=== PATIENT | female | born 2000 | race African-American/Black ===

== ENCOUNTER 2024-10-12 12:30 | Inpatient (IN) | payer OTHER, SELFPAY ==
[2024-10-12] VITALS (14 sets, daily range): BP systolic 121–173; BP diastolic 72–121; BMI 53.2; BMI 51.3
--- NOTE | 2024-10-12 08:23 | ED.GENMED ---
History of Present Illness
General
Chief Complaint: Blood Pressure Problem
Source: patient
Exam Limitations: none
Time Seen by Provider: 10/12/24 08:12
Nursing documentation reviewed up to this point in time: agreed with
History of Present Illness
History of Present Illness:
24-year-old female from a local longterm she has been incarcerated for 8 or 9 months history of hypertension, presents with shortness of breath some cough lower extremity edema blood pressures been up meds have been titrated over the past few weeks to
months, states he has been compliant with it no chest pains, no fever or chills no abdominal pain not drink or smoke does feel like her legs are swollen
Past History
Past History
ED Past Medical History: Asthma and HTN
Social History
Tobacco: Non-smoker
Alcohol: None
Drug: None
Living: longterm
Employment: Not employed
Family History
Family History: Hypertension
Review of Systems
Review of Systems
All Other Systems: Not applicable
Constitutional: Reports sleep disturbance
Respiratory: Reports cough and trouble breathing
Musculoskeletal: Reports edema
Phy Exam
Physical Exam
Physical Exam:
Physical Exam
General: no apparent distress, not acutely ill
Neck: No jaw
Heart: s1/s2 regular rate and rhythm, no murmur. equal radial pulses.
Lungs: Faint crackles bilaterally
Abdomen: Obese nontender
Neuro: alert and oriented. no focal neurological deficits
Skin: no rash
Psychiatric: well kept. interactive and cooperative
Extremities: No pitting edema
Course
Orders/Labs/Results
Orders:
Orders
10/12/24 08:22
Electrocardiogram (*1) Stat
Reason for Study: Other
Other Reason for Exam: chest pain
Cardiac Monitoring- Treatment ONCE
EKG- Treatment ONCE
10/12/24 08:23
CR Chest - 2 Views Urgent
Comment:
Reason For Exam: sob
10/12/24 08:38
HydrALAZINE [Apresoline] 10 mg IV NOW STA
10/12/24 08:42
Complete Blood Count/With Diff Urgent
Comprehensive Metabolic Panel Urgent
Magnesium Urgent
NT-proBNP Urgent
TSH Urgent
Troponin I Urgent
10/12/24 09:49
Amlodipine [Norvasc] 10 mg PO NOW STA
Losartan [Cozaar] 50 mg PO NOW STA
10/12/24 09:50
Hydrochlorothiazide [Oretic] 25 mg PO NOW STA
10/12/24 10:11
Propranolol [Inderal] 20 mg PO NOW STA
10/12/24 10:19
HOSPITALIST CONSULT Routine
Consulting Provider: Jarred Smallwood
Was physician already notified: Yes
10/12/24 11:20
Labetalol HCl [Trandate] 20 mg IV NOW STA
Abnormal Lab Results
10/12/24
08:42
RBC 4.16 L 10^6/uL
(4.20-5.40)
Hgb 11.4 L g/dL
(12.0-16.0)
Hct 34.8 L %
(37.0-47.0)
MCHC 32.8 L g/dL
(33.0-37.0)
Absolute Monos (auto) 0.9 H 10^3/uL
(0.1-0.6)
Monocytes % 9.4 H %
(1.7-9.3)
Glucose 102 H mg/dl
(70-99)
10/12/24 08:42
10/12/24 08:42
Vital Signs
Initial and Last Documented VS:
Initial Vital Signs
Temp Pulse Resp BP Pulse Ox
98.6 F 89 16 172/116 99
10/12/24 08:11 10/12/24 08:11 10/12/24 08:11 10/12/24 08:11 10/12/24 08:11
Last Documented Vital Signs
Temp Pulse Resp BP Pulse Ox
98.6 F 84 12 166/115 99
10/12/24 08:11 10/12/24 11:00 10/12/24 11:00 10/12/24 11:00 10/12/24 11:03
MDM/Problems Addressed
Differential Diagnosis Includes:
Hypertensive urgency hypertensive emergency accelerated hypertension, cardiomyopathy
MDM/Problems Addressed:
Hypertension shortness of breath
Chronic conditions affecting care: HTN
Acute Exacerbation and/or Progression of Chronic Illness: HTN
*Radiology
Radiology exam reviewed: preliminary read by ED provider
*EKG
Interpreted by ED Provider?: Yes
Interpretation: abnormal
Comparison EKG: no comparison EKG present
Heart Rate: 70
Rate: normal
Rhythm: sinus
Ischemia: non-specific ST changes
*Soup Mixer Interpretation
Rate: normal
Interpretation: normal
Heart Rate: 70
Rhythm: sinus
*Critical Care Note
Total Time (30-74mins, 75-104mins- exclusive of procedures): Not Applicable
Update Note
Update Note:
9:50 AM labs noted chest x-ray noted chest x-ray report noted blood pressure improved a bit after hydralazine we will give her her p.o. meds, sideration for specialty consultation echocardiogram etc.
11:45 AM patient persistent hypertension, never had a workup for secondary causes, never had an echo, reviewed with hospitalist will admit
ED Attending Note
-
Portions of this chart may have been created with voice recognition software.� Occasional wrong word or��sound alike� substitutions may have occurred due to the inherent limitations of voice recognition software.
Discharge Plan
Departure
Patient Disposition: Admit
Date of Disposition: 10/12/24
Time of Disposition: 12:05
Admit to: Telemetry
Presentation/result/management discussed w/ accepting MD/DO: Hospitalist
Patient with high blood pressure during this ER visit?: Yes
Condition: Fair
Discharge Problem:
Accelerated hypertension
Referrals:
[facility] [Family Provider] -
Interventions
Interventions:
*Risk Screen - Suicide Last Done: 10/12/24 08:11
*General Assessment Last Done: 10/12/24 08:11
*Neglect/Abuse Screening Last Done: 10/12/24 08:11
*ED- Fall Risk Assessment Last Done: 10/12/24 11:06
*ED COVID-19 Vaccine History Last Done: 10/12/24 11:05
ED- Cardiac Assessment Last Done: 10/12/24 11:03
ED- Neurological Assessment Last Done: 10/12/24 11:03
ED- Pulmonary Assessment Last Done: 10/12/24 11:03
Discharge Date and Time
Print Language: LUXEMBOURGER
[2024-10-12] MEDS: APRESOLINE 10 MG IV ×2 (08:45→20:18)
[2024-10-12 08:59] LABS: % Basophils 0.3 % (0-2); % Eosinophils 0.6 % (0-6); % Immature Granulocytes 0.3 % (0-0.5); % Lymphocytes 24.7 % (20.5-51.1); % Monocytes 9.4 % (1.7-9.3); % Neutrophils 64.7 % (42.2-75.2); Absolute Eosinophils 0.1 10^3/uL (0-0.7); Absolute Lymphocytes 2.5 10^3/uL (1.2-3.4); Absolute Monocytes 0.9 10^3/uL (0.1-0.6); Absolute Neutrophils 6.4 10^3/uL (1.4-6.5); Hematocrit 34.8 % (37.0-47.0); Hemoglobin 11.4 g/dL (12.0-16.0); Mean Corp Hgb Conc. 32.8 g/dL (33.0-37.0); Mean Corpuscular Hgb 27.4 pg (27.0-31.0); Mean Corpuscular Volume 83.7 fL (81.0-99.0); Mean Platelet Volume 10.2 fL (7.4-10.4); Nucleated Red Blood Cells % 0 %; Platelet Count 393 10^3/uL (130-400); Red Blood Cell Count 4.16 10^6/uL (4.20-5.40); Red Cell Dist. Width 13.7 % (11.5-14.5); White Blood Cell Count 9.9 10^3/uL (4.8-10.8)
[2024-10-12 09:05] LABS: ALT (SGPT) 34 U/L (0-35); AST (SGOT) 29 U/L (14-36); Alkaline Phosphatase 79 U/L (38-126); Blood Urea Nitrogen 8 mg/dl (7-17); Calcium 9.4 mg/dl (8.4-10.2); Carbon Dioxide 28 mmol/L (22-30); Chloride 99 mmol/L (98-107); Glucose 102 mg/dl (70-99); Potassium 3.6 mmol/L (3.5-5.1); Sodium 136 mmol/L (135-145); Total Bilirubin 0.5 mg/dl (0.2-1.3); Total Protein 6.9 g/dl (6.3-8.2); eGFR > 60.00
[2024-10-12 09:15] LABS: NT-proBNP < 20.0 pg/ml; Troponin I < 0.012 ng/ml
[2024-10-12 09:37] LABS: TSH 3.75 uIU/ml (0.47-4.68)
[2024-10-12] MEDS: NORVASC 10 MG PO (10:19)
[2024-10-12] MEDS: COZAAR 50 MG PO ×2 (10:20→20:17)
[2024-10-12] MEDS: ORETIC 25 MG PO (10:20)
[2024-10-12] MEDS: INDERAL 20 MG PO (10:26)
[2024-10-12] MEDS: TRANDATE 20 MG IV (12:03)
--- NOTE | 2024-10-12 12:27 | HPS.HSE ---
Family Physician
-
Family Physician: Facility [facility]
Chief Complaint
-
Elevated blood pressure and shortness of breath
History of Present Illness
24-year-old female with a history of hypertension currently at [facility] came in because of uncontrolled blood pressure and shortness of breath.
3 days ago she was diagnosed with hypertension was put on 2 medication including a diuretic. Her blood pressure was elevated and she was referred to get a specialist evaluation but she landed in assisted. When she was not present she got both
propranolol and losartan introduced but the blood pressure still was elevated. In the last few days she is feeling short of breath with exertion and with elevated blood pressure she was sent in.
No chest pains or palpitation.
Apart from asthma no other medical history.
One of her sister who is in 30s also has of blood pressure issues. Both parents have blood pressure issue.
Denies any kidney disease or heart disease.
Patient received her regular medication and waiting for the blood pressure to be optimized. She also got IV hydralazine and labetalol on admission.
Medical History
Past Medical History
Past Medical History: Reports Asthma and HTN
Past Surgical History: Reports None
Social History
Tobacco: Non-smoker
Alcohol: None
Drug: None
Living: Halfway
Employment: Not Employed
Family History
Family History: Not pertinent
Allergies / Home Medications
Allergies reflects when Allergies were last updated in idiag.
Home Medications with original date entered in idiag
Allergy/Medication List:
Allergies
Allergy/AdvReac Type Severity Reaction Status Date / Time
No Known Allergies Allergy Unverified 10/12/24 08:10
Review of Systems
-
A 12 point ROS was completed and negative except as noted: Yes
Physical Exam
Vital Signs
Vital Signs
Temp Pulse Resp BP Pulse Ox
98.6 F 78 16 158/93 99
10/12/24 08:11 10/12/24 12:04 10/12/24 12:04 10/12/24 12:04 10/12/24 12:04
Physical Exam
General: Comfortable
HEENT: Moist mucous membranes
Respiratory: Clear
Cardiac: S1/S2 and Regular Rhythm; No Tachycardia
GI: Soft, Non Tender, Non Distended and Normal Bowel Sounds
Musculoskeletal: No No Edema (trace bl feet edema)
Neuro: AO x 3
Psych: Calm
Laboratory Results
-
10/12/24 08:42
10/12/24 08:42
Laboratory Results
Total Bilirubin 0.5 mg/dl (0.2-1.3) 10/12/24 08:42
AST 29 U/L (14-36) 10/12/24 08:42
ALT 34 U/L (0-35) 10/12/24 08:42
Alkaline Phosphatase 79 U/L (38-126) 10/12/24 08:42
Troponin I < 0.012 ng/ml 10/12/24 08:42
Data Reviewed
-
Diagnostic Radiology: Report Reviewed by me (cxr)
Lab Data: Labs Reviewed by me
Impression/Plan
-
Multidrug resistant hypertension with hypertensive urgency. No evidence of endorgan dysfunction. Patient would benefit inpatient further evaluation to optimize her medication as well as evaluate for secondary hypertension. Admit to telemetry.
Resume her home medication and adjust as needed. Consult nephrology. Check a UA. Cardiomegaly noted on a sitting chest x-ray we will get an echocardiogram for further evaluation. Clinically no signs of heart failure. Creatinine is normal. No
history of heart disease or cerebrovascular disease.
Asthma-no flare-continue as needed nebulizer.
Full code
--- NOTE | 2024-10-12 14:37 | W.CON.NEPH ---
Consultation
-
Date/Time Consultation Requested: 10/12/24 1230
Date/Time Consultation Performed: 10/12/24 1445
Requesting Provider: Jarred Tolliver
Performing Provider: Kimberly Pino
Reason for Consultation: HTN
Medical History
-
Chief Complaint: HTN, SOB
History of Present Illness:
24-year-old female with a history of hypertension currently at [facility] came in because of uncontrolled blood pressure and shortness of breath.Pt first diagnosed with HTN [address] [facility] and was started on
meds but never was controlled. She also told that she may have TERA and recommended to get testing done which she was unable to get since she ended up in intermediate since last 8-9months. Meds were further adjusted with addition of propranolol and
Losartan in intermediate. She does c/o palpitations. She has Asthma with intermittent wheezing for which takes nebs at intermediate as she can not use inhalers. In the last few days she is feeling short of breath with exertion and with elevated blood pressure
she was sent in today. On arrival her BP 170/120s. She notes having mild chest discomfort but none now. her sob is also better. She reports gaining wt and edema of feet for last 2weeks as well. She has dry mouth and drinks plenty of fluids. She also
notes of having mild blood when she blows her nose or coughs. She reports compliant with cardiac diet and dose not drink coffee. No drug use ever. No smoking. However strong family history of HTN, Mom post delivering the pt and had HTN
too.
Past Medical History
Asthma, HTN, obesity , suspected TERA
Social History
Tobacco: Non-Smoker
Alcohol: None
Drug: None
Living: Penitentiary
Employment: Not Employed
Family History
One of her sister who is in 30s also has of blood pressure issues. Both parents have blood pressure issue.
Denies any kidney disease or heart disease.
Mom post delivering the pt and had HTN too.
Allergies / Home Medications
Allergy/AdvReac Type Severity Reaction Status Date / Time
No Known Allergies Allergy Unverified 10/12/24 08:10
�Medication �Instructions �Recorded �Confirmed �Type
albuterol sulfate 2.5 mg/3 mL 2.5 mg inhalation TIDPRN PRN sob 10/12/24 10/12/24 History
(0.083 %) solution for nebulization
amlodipine 10 mg tablet 10 mg PO DAILY 10/12/24 10/12/24 History
hydrochlorothiazide 25 mg tablet 25 mg PO DAILY 10/12/24 10/12/24 History
hydroxyzine pamoate 25 mg capsule 25 mg PO HSPRN PRN anxiety 10/12/24 10/12/24 History
losartan 50 mg tablet 50 mg PO DAILY 10/12/24 10/12/24 History
mirtazapine 15 mg tablet 15 mg PO HS 10/12/24 10/12/24 History
propranolol 20 mg tablet 20 mg PO DAILY 10/12/24 10/12/24 History
propranolol 40 mg tablet 40 mg PO HS 10/12/24 10/12/24 History
Review of Systems
-
all complete 12 point ROS have been inquired and found negative other than stated in HPI
Physical Exam
Vital Signs
Vital Signs
Temp Pulse Resp BP Pulse Ox
98.3 F 94 18 167/112 99
10/12/24 14:06 10/12/24 14:06 10/12/24 14:06 10/12/24 14:06 10/12/24 14:06
Lab Results
WBC 9.9 10^3/uL (4.8-10.8) 10/12/24 08:42
RBC 4.16 10^6/uL (4.20-5.40) L 10/12/24 08:42
Hgb 11.4 g/dL (12.0-16.0) L 10/12/24 08:42
Hct 34.8 % (37.0-47.0) L 10/12/24 08:42
Plt Count 393 10^3/uL (130-400) 10/12/24 08:42
Sodium 136 mmol/L (135-145) 10/12/24 08:42
Potassium 3.6 mmol/L (3.5-5.1) 10/12/24 08:42
Chloride 99 mmol/L (98-107) 10/12/24 08:42
Carbon Dioxide 28 mmol/L (22-30) 10/12/24 08:42
BUN 8 mg/dl (7-17) 10/12/24 08:42
Creatinine 0.6 mg/dL (0.6-1.0) 10/12/24 08:42
eGFR > 60.00 10/12/24 08:42
Glucose 102 mg/dl (70-99) H 10/12/24 08:42
Calcium 9.4 mg/dl (8.4-10.2) 10/12/24 08:42
Kjq-T-Abvutrgpzmo Pept < 20.0 pg/ml 10/12/24 08:42
Albumin 4.0 g/dl (3.5-5.0) 10/12/24 08:42
CXR:
IMPRESSION:
The cardiomediastinal silhouette appears enlarged which may be due to cardiomegaly or pericardial effusion.
Physical Exam
General: Awake, Alert, Oriented, AOx3, No Distress and Nontoxic
HEENT: EOMI, Anicteric, Conjunctivae Clear, Ear/Nose Intact and No JVD
Respiratory: Clear, Normal Excursion and Nonlabored Respirations
Cardiac: S1/S2 and Regular Rate/Rhythm
Breast: Deferred by me
Abdomen: Soft, Nontender and Nondistended
Musculoskeletal: No Cyanosis and Edema (trace in feet)
Skin: No Rash, Warm and Dry
Neuro: Nonfocal/Grossly Intact
Psych: Mood/afflect pleasant, Insight/judgement good and Appropriate
Data Reviewed
-
Radiology: Report Reviewed by me and Discussed with Patient
Labs: Labs Reviewed by me, Discussed with Physician and Discussed with Patient
Assessment/Plan
-
IMP:
Multidrug resistant hypertension with hypertensive urgency.
Cardiomegaly noted on chest x-ray
Asthma-no flare
morbid obesity BMI 51
suspected h/o TERA
PLan:
A/w HTN urgency from intermediate
HTN-young age onset unclear if secondary w/u done
check ARR, metanephrine, catecholamines and renal duplex
increase losartan to 100mg daily
could potentially try spironolactone after labs done in am
could not use labetalol since it is dual araceli, caution with asthma
note she is another dual araceli propranolol too
hopefully she has no end organ damage, echo and UA pending, cr normal
cotn HCTZ, CCB, prn hydralazine
eventual w/u for TERA , must lose wt, does she still need Remeron?
c/o Edema for 2weeks, BNP low. consider duplex-defer to primary
d/w pt in detail
d/w primary
[2024-10-12 15:57] LABS: Urine Albumin Negative (Neg - Trace); Urine Bilirubin Negative (Negative); Urine Character Slightly Cloudy (Clear); Urine Glucose Negative (Negative); Urine Ketone Negative (Negative); Urine Leukocyte Negative (Negative); Urine Nitrite Negative (Negative); Urine Occult Blood Negative (Negative); Urine Specific Gravity 1.015 (<1.030); Urine Urobilinogen Negative (Neg - 1+)
[2024-10-12 16:01] LABS: Urine Color Straw
[2024-10-12] MEDS: LOVENOX 40 MG SC (17:22)
[2024-10-12] MEDS: INDERAL 40 MG PO (22:01)
[2024-10-12] MEDS: REMERON 15 MG PO (22:01)
[2024-10-13 03:25] VITALS: BP 91/54
[2024-10-13 04:32] VITALS: BP 95/57
[2024-10-13 06:00] VITALS: BMI 50.6
--- NOTE | 2024-10-13 06:36 | PTCARENOTE ---
PRN hydralazine given at 20:18 for BP 165/85, per MD order. BP 95/57 at 04:32. [employer] made aware. Parameters changed for BP medications. Pt asymptomatic at that time.
[2024-10-13 06:46] LABS: Blood Urea Nitrogen 12 mg/dl (7-17); Calcium 9.4 mg/dl (8.4-10.2); Carbon Dioxide 26 mmol/L (22-30); Chloride 99 mmol/L (98-107); Estimated Creatinine Clearance > 125 ml/min; Glucose 100 mg/dl (70-99); Potassium 3.6 mmol/L (3.5-5.1); Sodium 135 mmol/L (135-145); eGFR > 60.00
[2024-10-13 07:16] LABS: Cortisol, Random 6.2 ug/dl
[2024-10-13 07:40] VITALS: BP 161/87
[2024-10-13] MEDS: COZAAR 50 MG PO (08:23)
[2024-10-13] MEDS: ORETIC 25 MG PO (08:24)
[2024-10-13] MEDS: INDERAL 20 MG PO (08:24)
[2024-10-13] MEDS: NORVASC 10 MG PO (08:24)
--- NOTE | 2024-10-13 10:22 | W.PN.HOSP.TC ---
Addendum entered and electronically signed by Joesph Ball MD 10/14/24 00:54:
Attending Addendum-
I saw and evaluated the patient. I reviewed the resident�s note and agree with findings and plan as documented in the resident�s note. Sub: Feels graet. no complaints. Full 12 point ROS reviewed and negative except as documented Exam: Vitals
reviewed in chart GEN-NAD heart RRR flow murmur @ LUSB abd obese LE no edema
Plan:
#Hypertensive urgency
-resolved
-cont amlodipine, hydrochlorothiazide, losartan and propranolol.
- Renal artery duplex not suggestive of stenosis.
- Echocardiogram unremarkable.
- Laboratory work-up for secondary hypertension pending. f/u as OP
- Needs sleep apnea evaluation as outpatient.
#Class III obesity due to excess calorie intake
- Affects all aspects of care.
- GLP-1 as outpatient will help, and with cardiovascular risk reduction.
#Suspected sleep apnea
- Would benefit from a sleep study as outpatient.
#Mild intermittent asthma
- Not in acute exacerbation.
- Albuterol as needed.
#Generalized anxiety disorder
- Continue mirtazapine.
- Hydroxyzine as needed.
Code status
- Full.
Time spent coordinating care, DC planning, review of DC plan of care with resident, transition of care, review of records, med rec/scripts sent electronically, consults, notes, d/w consultants, nursing, CO, and CM� 35 mins
Original Note:
Today's Communication/Plan
-
* Stable for discharge, likely today.
Assessment / Plan
Assessment / Plan
Assessment
Erna Carlson, 24-year-old female with hypertension, was transferred from [facility] on 10-12-24 with elevated blood pressure and shortness of breath. She has a history of poorly controlled hypertension, and was started on 2
medications 3 days ago. No chest pain or tightness, lightheadedness or dizziness, abdominal pain or blood in stool/urine, headaches, or neurological symptoms. She was admitted to telemetry with nephrology consultation.
Impression and plan
Hypertensive urgency, resolved
Multi-drug resistant hypertension
- Continue home medications: amlodipine, hydrochlorothiazide, losartan and propranolol.
- Hydralazine as needed.
- 2 gram sodium diet.
- Renal artery duplex not suggestive of stenosis.
- Echocardiogram unremarkable.
- Laboratory work-up for secondary hypertension pending.
- Needs sleep apnea evaluation as outpatient.
- Obesity possibly contributing.
- Suspect a genetic element considering history; can consider genetic counseling outpatient.
- Nephrology following.
Class III obesity due to excess calorie intake
- Affects all aspects of care.
- GLP-1 as outpatient will help, and with cardiovascular risk reduction.
Suspected sleep apnea
- Would benefit from a sleep study as outpatient.
- Possibly contributing to hypertension.
- Tripeptide would be the GLP-1 of choice if this is present.
Mild intermittent asthma
- Not in acute exacerbation.
- Albuterol as needed.
Generalized anxiety disorder
- Continue mirtazapine.
- Hydroxyzine as needed.
Thromboprophylaxis
- Enoxaparin.
Code status
- Full.
Anticipated Discharge: Today
Subjective/Interval History
-
Date of Service: October 13, 2024
No overnight events. Stable and asymptomatic.
Objective Data
-
Labs:
Laboratory Results
10/13/24
05:40
Sodium 135
Potassium 3.6
Chloride 99
Carbon Dioxide 26
BUN 12
Creatinine 0.7
Glucose 100 H
Calcium 9.4
Vital Signs:
Vital Signs
Temp Pulse Resp BP Pulse Ox
97.8 F 89 18 161/87 98
10/13/24 07:40 10/13/24 07:40 10/13/24 07:40 10/13/24 07:40 10/13/24 07:40
I&O
10/12/24 10/13/24 10/14/24
06:59 06:59 06:59
Intake Total 2400 / 2400
Balance 2400 / 2400
Review of Systems
-
History Source: Patient
All other systems: Reviewed and negative
Physical Exam
-
General: No Apparent Distress and Comfortable
HEENT: Normocephalic, Atraumatic, Moist Mucous Membranes and Anicteric
Respiratory: Clear to Auscultation and Non Labored Respirations
Cardiac: Regular Rhythm and S1/S2
GI: Soft, Nontender and Nondistended
Genito-urinary: No Costovertebral Tender
Musculoskeletal: No Clubbing, No Cyanosis and No Edema
Skin: Warm, Dry and IV Access / Catheter Site
Neuro: Awake, Alert, Oriented, No Motor Deficits and No Sensory Deficits
Psych: Calm
[2024-10-13 11:00] VITALS: BP 131/79
--- NOTE | 2024-10-13 11:42 | CM ---
quarrying manager reviewed patient's chart and patient was admitted from [facility], patient has 2 guards at bedside, plan is for patient to return to [facility] when stable.
Plan; Patient to return to [facility] when stable
--- NOTE | 2024-10-13 13:32 | W.PN.NEPH.PH ---
Today's Communication / Plan
-
await secondary w/u
Assessment/Plan
-
IMP:
Multidrug resistant hypertension with hypertensive urgency.
Cardiomegaly noted on chest x-ray
Asthma-no flare
morbid obesity BMI 51
suspected h/o TERA
PLan:
secondary w/u pending
continue BP meds as is
-
-
Date of Service: October 13, 2024
CC / HPI / ROS
-
Chief Complaint:
HTN
History of Present Illness:
BP stable on multidrug
K normal
Cr normal
Review of Systems:
no CP/SOB
Labs
-
Labs:
WBC 9.9 10^3/uL (4.8-10.8) 10/12/24 08:42
RBC 4.16 10^6/uL (4.20-5.40) L 10/12/24 08:42
Hgb 11.4 g/dL (12.0-16.0) L 10/12/24 08:42
Hct 34.8 % (37.0-47.0) L 10/12/24 08:42
Plt Count 393 10^3/uL (130-400) 10/12/24 08:42
Sodium 135 mmol/L (135-145) 10/13/24 05:40
Potassium 3.6 mmol/L (3.5-5.1) 10/13/24 05:40
Chloride 99 mmol/L (98-107) 10/13/24 05:40
Carbon Dioxide 26 mmol/L (22-30) 10/13/24 05:40
BUN 12 mg/dl (7-17) 10/13/24 05:40
Creatinine 0.7 mg/dL (0.6-1.0) 10/13/24 05:40
eGFR > 60.00 10/13/24 05:40
Glucose 100 mg/dl (70-99) H 10/13/24 05:40
Calcium 9.4 mg/dl (8.4-10.2) 10/13/24 05:40
Idq-R-Gdtfapzqijw Pept < 20.0 pg/ml 10/12/24 08:42
Albumin 4.0 g/dl (3.5-5.0) 10/12/24 08:42
Physical Exam
-
Vital Signs:
Vital Signs
Temp Pulse Resp BP Pulse Ox
98 F 76 16 131/79 98
10/13/24 11:00 10/13/24 11:00 10/13/24 11:00 10/13/24 11:00 10/13/24 11:00
Cardiovascular:: Regular rate and rhythm
Respiratory:: Bilateral: Coarse
Lung Excursion:: Normal
Abdomen:: Nontender and Soft
Bowel Sounds:: Normal
Extremity Edema:: None: Bilateral:
[2024-10-13 15:45] VITALS: BP 129/92
--- NOTE | 2024-10-13 16:06 | W.DCSUMMARY ---
Addendum entered and electronically signed by Joesph Ball MD 10/14/24 00:56:
Read, reviewed, and agree. See same day progress note for additional details. Need close f/u with PCP and nephro as OP
Angel Ball MD
Original Note:
Documented by User: Bola Martinez MD, Resident 10/13/24 17:31
Discharge Summary
Discharge Data
Date of Admission: 10/12/24
Date of Discharge: 10/13/24
-
Pending Results: Yes (renin, aldosterone, plasma catecholamine/metanephrine panel)
Hospital Course
Primary discharge diagnosis
* Hypertensive urgency
Secondary discharge diagnoses
- Multi-drug resistant hypertension
- Class III obesity
- Suspected sleep apnea
- Mild intermittent asthma
- Generalized anxiety disorder
Hospital course
Erna Carlson, 24-year-old female with multi-drug resistant hypertension, presented to the hospital on 10-12-24 with shortness of breath, chest tightness and elevated blood pressure readings. She has been on 4 different antihypertensive agents prior
to her arrival. Nephrology was consulted and she underwent evaluation for secondary causes of hypertension. Renal artery duplex ultrasound, echocardiogram, troponin, electrocardiogram, thyroid test, morning cortisol, blood count and comprehensive
metabolic profile were unremarkable for pathological causes. The patient's blood pressure responded to hydralazine, and her symptoms subsided. She was back to baseline and feeling good. Vitals remain stable at the time of discharge and physical
examination was normal. Renin/aldosterone and plasma catecholamine panel were pending at the time of discharge, and recommended to be followed up by primary or provider taking care of the patient. Patient's medications left unchanged considering the
normalized blood pressure without hydralazine.
Discharge Plan
-
Patient Disposition: Snf
Discharge Diagnosis/Procedures: Hypertensive urgency
Condition: Good
Diet: Low Fat, Low Cholesterol, Low Sodium and 2 Gram Sodium
Activity: No restrictions
Driving Restrictions: As prior to admission
Bathing Restrictions: None
Blood Work: CMP in 1 week
Activity Restrictions/Additional Instructions:
* CONSIDER SLEEP APNEA EVALUATION
* TRIPEPTIDE OR SEMAGLUTIDE FOR WEIGHT LOSS AND BLOOD PRESSURE CONTROL (THE LATTER IS INDICATED FOR SLEEP APNEA WELL)
* GENETIC COUNSELING FOR GENETIC CAUSES OF HYPERTENSION FOR FUTURE CARDIOVASCULAR AND RENAL RISK REDUCTION
Instructions: Understanding your risk of high blood pressure
Referrals:
[facility] [Family Provider] -
Prescriptions:
Continued
losartan 50 mg Tablet
50 mg PO DAILY
albuterol sulfate 2.5 mg /3 mL (0.083 %) Solution For Nebulization
2.5 mg INHALATION TIDPRN PRN (Reason: sob)
propranolol 40 mg Tablet
40 mg PO HS
amlodipine 10 mg Tablet
10 mg PO DAILY
hydrochlorothiazide 25 mg Tablet
25 mg PO DAILY
mirtazapine 15 mg Tablet
15 mg PO HS
propranolol 20 mg Tablet
20 mg PO DAILY
hydroxyzine pamoate 25 mg Capsule
25 mg PO HSPRN PRN (Reason: anxiety)
Discharge Orders:
Discharge Patient (As Directed); Ordered 10/13/24
Ordered By: Bola Martinez
Discharge Date and Time
Discharge Date/Time: 10/13/24 18:47
Print Language: MOROCCAN

Documented by User: Joesph Ball MD 10/14/24 00:48
Discharge Summary
Discharge Data
Date of Admission: 10/12/24
Date of Discharge: 10/14/24
Discharge Plan
-
Patient Disposition: Snf
Discharge Diagnosis/Procedures: Hypertensive urgency
Condition: Good
Diet: Low Fat, Low Cholesterol, Low Sodium and 2 Gram Sodium
Activity: No restrictions
Driving Restrictions: As prior to admission
Bathing Restrictions: None
Blood Work: CMP in 1 week
Activity Restrictions/Additional Instructions:
* CONSIDER SLEEP APNEA EVALUATION
* TRIPEPTIDE OR SEMAGLUTIDE FOR WEIGHT LOSS AND BLOOD PRESSURE CONTROL (THE LATTER IS INDICATED FOR SLEEP APNEA WELL)
* GENETIC COUNSELING FOR GENETIC CAUSES OF HYPERTENSION FOR FUTURE CARDIOVASCULAR AND RENAL RISK REDUCTION
Instructions: Understanding your risk of high blood pressure
Referrals:
[facility] [Family Provider] -
Prescriptions:
Continued
losartan 50 mg Tablet
50 mg PO DAILY
albuterol sulfate 2.5 mg /3 mL (0.083 %) Solution For Nebulization
2.5 mg INHALATION TIDPRN PRN (Reason: sob)
propranolol 40 mg Tablet
40 mg PO HS
amlodipine 10 mg Tablet
10 mg PO DAILY
hydrochlorothiazide 25 mg Tablet
25 mg PO DAILY
mirtazapine 15 mg Tablet
15 mg PO HS
propranolol 20 mg Tablet
20 mg PO DAILY
hydroxyzine pamoate 25 mg Capsule
25 mg PO HSPRN PRN (Reason: anxiety)
Discharge Orders:
Discharge Patient (As Directed); Ordered 10/13/24
Ordered By: Bola Martinez
Discharge Date and Time
Discharge Date/Time: 10/13/24 18:47
Print Language: MOROCCAN
[2024-10-13 17:18] LABS: Amphetamines Negative (Negative); Barbiturates Negative (Negative); Benzodiazepines Negative (Negative); Buprenorphine Negative (Negative); Cocaine Negative (Negative); Marijuana Negative (Negative); Methadone Negative (Negative); Methamphetamines Negative (Negative); Opiates Negative (Negative); Phencyclidine Negative (Negative); Tricyclic Antidepressants Negative (Negative)
[2024-10-13] MEDS: LOVENOX SC (17:29)
[2024-10-15 07:47] LABS: Aldosterone/Renin Activ Ratio 17.1 ratio (<=25.0); Renin Activity Results 0.7 ng/mL/hr
== END 2024-10-13 18:47 | DRG 305 ==
LOC: 3 WEST ACU 12:30
PROVIDERS: Student in an Organized Health Care Education/Training Program; ADMITTING PHYSICIAN Internal Medicine; ATTENDING PHYSICIAN Family Medicine; CONSULT PHYSICIAN Internal Medicine; EMERGENCY PHYSICIAN Emergency Medicine
DX: I16.0 Hypertensive urgency (principal); Z68.43 Body mass index [BMI] 50.0-59.9, adult; E66.813 Obesity, class 3; E66.01 Morbid (severe) obesity due to excess calories; F41.1 Generalized anxiety disorder; I10 Essential (primary) hypertension; I1A.0 Resistant hypertension; J45.20 Mild intermittent asthma, uncomplicated; G47.33 Obstructive sleep apnea (adult) (pediatric); Z79.899 Other long term (current) drug therapy; Z82.49 Family history of ischemic heart disease and other diseases of the circulatory system
CPT/HCPCS: 71046; 80048; 80053; 80306; 81003; 82088; 82384; 82533; 83735; 83835; 83880; 84244; 84443; 84484; 85025; 87070; 93005; 93306; 93970; 93975; 96374; 96375; 99285